=== PATIENT | female | born 1965 | race Caucasian/White ===

== ENCOUNTER 2024-07-16 07:13 | Day surgery (SDC) | payer OTHER ==
[~2024-07-16] VITALS: Ht 177.8 cm; Wt 78.5 kg
[~2024-07-16 07:13] MED LIST: AVIANE1 EACH PO; CITALOPRAM HBR20 MG PO; IBLOOD GLUCOSE TEST STRIP 1 EA TEST VI PRN; LACTATED RINGER'S 1,000 ML IV SCH; LIDOCAINE HCL 1% 5 ML SDV INJ ONE; MIDAZOLAM HCL 5 MG/5 ML VIAL IV PRN; WELLBUTRIN XL150 MG PO; ZEPBOUND15 MG/0.5 SQ; fentaNYL citrate 100 MCG/2 ML VIAL IV PRN
[2024-07-16 07:29] VITALS: BP 150/85
[2024-07-16] MEDS ORDERED: PROTONIX20 MG PO (07:34)
[2024-07-16] MEDS ORDERED: MULTI VITAMIN1 EACH PO (07:35)
[2024-07-16] MEDS ORDERED: VITAMIN D3125 MC1 PO (07:35)
--- NOTE | 2024-07-16 07:37 | NUR ---
PT NOT AVAILABLE FOR VISIT. PROVIDED PRAYER.
[2024-07-16] MEDS ORDERED: MIDAZOLAM HCL 5 MG/5 ML VIAL ONE (08:05)
[2024-07-16] MEDS ORDERED: fentaNYL citrate 100 MCG/2 ML VIAL ONE ×2 (08:05→08:32)
--- NOTE | 2024-07-16 08:48 | NUR ---
07/16/24 0848 Sheets,Suzan 0832 PT ARRIVED TO PACU ON RA, PT ASLEEP AND SMALL AMOUNT OF SNROING NOTED. RESP EVEN AND UNLABORED.
[2024-07-16 09:09] VITALS: BP 102/74
--- NOTE | 2024-07-17 08:43 | OR ---
[facility] [address], [place] [address] Signed DATE OF OPERATION: 07/16/2024 SURGEON: Errol Owens MD PREOPERATIVE DIAGNOSIS: Sister with colon cancer in her late 40s. POSTOPERATIVE DIAGNOSIS: Unremarkable colonoscopy. PROCEDURE: Colonoscopy without biopsy. ESTIMATED BLOOD LOSS: None. INDICATIONS: Kena is a 59-year-old female, who comes to us from [place], [place]. She sees Enrrique Godwin at the [facility]. She told me there are 15 children in the family. If I remember correctly, she is #6 or #9. She told me her sister had developed colon cancer in her late 40s. Her sister still alive now in her late 60s. She underwent a screening colonoscopy with Dr. Martinez in 2013 at the age of 49. I had reviewed that record, this was unremarkable. She did fine with Versed and fentanyl. 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 She told me she has no lower GI complaints. In the office, I gave her a pamphlet on colonoscopy. She understands the nature of the test. There is risk including, but not limited to gas bloating, crampy abdominal pain, bleeding, perforation requiring surgery, and missed diagnosis. We also reviewed the written instructions for a bowel prep line by line. 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 She also understands the need for IV conscious sedation. She told me her will be taking her home. She had expressed understanding and wished to proceed. PROCEDURE NOTE: Kena was taken into our endoscopy suite, placed in the left lateral decubitus position. She was given IV sedation with 8 mg of Versed and 125 mcg of fentanyl. A digital rectal exam was performed. This was unremarkable. There were no external hemorrhoids. She had good sphincter tone. There were no masses. The adult colonoscope was introduced and advanced under direct visualization of camera. We needed just a little extra sedation and abdominal compression to get the scope around and into the cecum itself. Her prep was quite excellent. We could easily see the appendiceal Electronically Signed By: ERROL OWENS MD 07/17/24 0843 PATIENT NAME: KENA VAUGHN OPERATIVE REPORT DATE OF : 69 REPORT #: [id number] PHYSICIAN: ERROL OWENS MD PCP: ENRRIQUE GODWIN PAC REPORT IS CONFIDENTIAL AND NOT TO BE RELEASED WITHOUT AUTHORIZATION [facility] [address], [place] [address] Signed orifice and ileocecal valve. The scope was then slowly withdrawn. We took several pictures for photodocumentation. We saw no pathology throughout the entire colon or rectum. In the rectum, the scope was retroflexed and we saw no additional pathology above the anal canal. After this, the gas was suctioned out colonoscope removed. Kena tolerated the procedure quite well. RECOMMENDATIONS: Knea can return in 5 years for repeat screening colonoscopy due to her family history of colon cancer. Errol Owens MD ALB/MODL /[id number] cc: Enrrique Godwin, Physician Ccie Errol Owens MD Patient Chart Copies: ERROL OWENS MD ~ Electronically Signed By: ERROL OWENS MD 07/17/24 0843 PATIENT NAME: KENA VAUGHN JAMES OPERATIVE REPORT DATE OF : 69 REPORT #: [id number] PHYSICIAN: ERROL OWENS MD PCP: ENRRIQUE GODWIN PAC REPORT IS CONFIDENTIAL AND NOT TO BE RELEASED WITHOUT AUTHORIZATION
== END 2024-07-16 09:18 | disposition home or self-care (01) ==
LOC: DS 07:13
PROVIDERS: ATTEND Colon & Rectal Surgery
PROC: 0DJD8ZZ Inspection of Lower Intestinal Tract, Via Natural or Artificial Opening Endoscopic (ICD-10-PCS; principal; 2024-07-16 08:15)
DX: Z12.11 Encounter for screening for malignant neoplasm of colon (principal); F32.A Depression, unspecified; E66.3 Overweight; Z68.33 Body mass index [BMI] 33.0-33.9, adult; Z79.899 Other long term (current) drug therapy; Z80.0 Family history of malignant neoplasm of digestive organs
CPT/HCPCS: 99153; G0500; J2250; J3010; J7121